=== PATIENT | male | born 1995 | race Two or more races ===

== ENCOUNTER 2016-06-28 21:24 | Emergency (ER) | payer OTHER ==
[~2016-06-28] VITALS: Ht 185.4 cm; Wt 77.1 kg
[2016-06-28] MEDS ORDERED: KEFL500C7 PO (21:57)
[2016-06-28] MEDS ORDERED: NAPR500T PO (21:57)
[2016-06-28] MEDS ORDERED: ADACEL/BOOSTRIX VACCINE (DIPHTH/PERTUSS/ACELL/TETANUS)0.5ML SYR (90715) IM ONE (22:00)
[2016-06-28] MEDS ORDERED: CEPHALEXIN 250 MG CAP PO ONE (22:00)
[2016-06-28] MEDS ORDERED: NORCO 5/325MG TABLET (BULK FOR ED) PO ONE (22:00)
[2016-06-28 22:03] VITALS: BP 153/72
== END 2016-06-28 22:29 | disposition home or self-care (01) ==
LOC: M ED 22:03
DX: S61.032A Puncture wound without foreign body of left thumb without damage to nail, initial encounter (principal); X58.XXXA Exposure to other specified factors, initial encounter; Y92.099 Unspecified place in other non-institutional residence as the place of occurrence of the external cause; Y93.9 Activity, unspecified; Y99.9 Unspecified external cause status; F17.200 Nicotine dependence, unspecified, uncomplicated; Z88.0 Allergy status to penicillin

== ENCOUNTER 2017-06-24 01:36 | Emergency (ER) | payer OTHER ==
[2017-06-24] MEDS: AZITHROMYCIN 250 MG TAB PO (02:04)
== END 2017-06-24 02:06 | disposition home or self-care (01) ==
LOC: M ED 01:36
DX: H66.002 Acute suppurative otitis media without spontaneous rupture of ear drum, left ear (principal); J45.909 Unspecified asthma, uncomplicated; F17.210 Nicotine dependence, cigarettes, uncomplicated; Z88.0 Allergy status to penicillin
CPT/HCPCS: 87880